=== PATIENT | female | born 1970 | race Caucasian/White ===

== ENCOUNTER 2018-08-06 07:50 | Inpatient (IN) ==
[~2018-08-06 07:50] MED LIST: Bupivacaine/Epinephrine 0.5% Inj 50 ML Vial ONE; Gelatin Size 100 Topical Foam ONE; Thrombin Topical Soln 5,000 UNIT Vial TOPICAL ONE
[2018-08-06] MEDS ORDERED: Chlorhexidine Gluconate 2% 1 Pack (2 Cloths) TOPICAL ONE (08:30)
[2018-08-06] MEDS ORDERED: Sodium Chlor 0.9% Inj 500 ML IV.CONT ONE (08:30)
[2018-08-06] MEDS ORDERED: Metoprolol Tartrate 25 MG Tablet PO ONE (08:30)
[2018-08-06] MEDS: Sod Chloride 0.9% Inj 1,000 ML IV.CONT SCH (08:52)
[2018-08-06] MEDS ORDERED: Vancomycin Inj 1,000 MG in Sodium Chlor 0.9% Inj 250 ML IV.SIG SCH (09:00)
[2018-08-06] MEDS ORDERED: Lidocaine PF 1% Inj 5 ML Syringe INFILTRATN ONE (09:20)
[2018-08-06] MEDS ORDERED: Neostigmine Inj 5 MG/5 ML Syringe IV.PUSH ONE (09:20)
[2018-08-06] MEDS ORDERED: Glycopyrrolate Inj 1 MG/5 ML Syringe IV.PUSH ONE (09:20)
--- NOTE | 2018-08-06 10:18 | P.OP ---
- Preoperative Diagnosis (1) Chronic low back pain with right-sided sciatica (2) Lumbar disc herniation with radiculopathy (3) Lumbar degenerative disc disease (4) Lumbar facet arthropathy Date of procedure: 08/06/18 Procedure: L5-S1 transforaminal decompression with interbody fusion; L5-S1 pedicle screw fixation; L5-S1 interbody cage placement; microsurgical technique Anesthesia: GETA Surgeon: Jagdeep Silvestre MD Milk Vendor: Chaya Nicole Estimated blood loss (mL): 100 Operation and Findings: This was a difficult case due to the patient body habitus and morbid obesity. The [id number] details of the procedure, indications, alternatives, risks and potential complications were fully discussed with the patient. The patient fully understood. All the questions were answered. No guarantees were given. The patient voiced requesting the procedure and provided informed consents. The patient was offered the alternative of delaying the procedure and continuing with nonsurgical management. Prior to the procedure, the surgical incision was marked in the preoperative surgical holding room, and the procedure, risks, and potential complications revisited with the patient. Placement of electrodes for intraoperative neurophysiological monitoring was completed. The patient was taken to the operative room, and following induction of general anesthesia, endotracheal intubation was performed. A Pascual catheter, bilateral DEJA hose and sequential compression devices were placed and kept throughout the procedure. The patient was positioned prone, over a Jorje table over a Marcial frame. All pressure in the preoperative surgical holding room points were carefully padded. The eyes were tapped shut after ointment was applied by the anesthesiologist to prevent corneal abrasion. A Juan R hugger was placed over the exposed lower body to maintain control of the core body temperature. The lumbar region was prepped and draped in the usual sterile fashion. Once the patient was positioned, a localizing cross-table lateral x-ray was performed with a C-arm. A right paramedian incision was outlined on the skin approximately 3cm from the midline. The skin incision made with a #10 blade. Small bleeders were controlled with the cautery. The dissection was then carried out into deeper planes and through the thoracolumbar fascia with a Bovie. The intermuscular septum was identified and the mucles were blunted dissected along the septum. The facets and transverse process at the right L5- S1 levels were exposed and the proper anatomical landmarks were identified. A microsurgical self-retaining retractor was placed on the incision, and a localizing lateralizing cross-table x-ray was performed. Intraoperative microscope magnification used for further dissection. There was significant facet and ligamentum flavum hypertrophy noted. The right L5-S1 facet was resected with a drill bit along with the lamina and there was severe foraminal and lateral recess stenosis from hypertrophied ligamentum flavum and facet which was decompressed. There was disc height collapse from the degeneration along with disc protrusion also leading to the foraminal stenosis. Epidural hemostasis was achieved with bipolar cautery and Gelfoam with thrombin. Subsequently entered into the disc space at the L5-S1 level with a #15 blade and yeni were used for discectomy. I then placed PEEK cage packed with local autograft bone and more local autograft bone was packed adjacent to the cage in interspace for added interbody fusion. With placement of the cage, I was able to distract the interspace and opened up the foramen further bilaterally. Subsequently in order to facilitate the fusion and provide stabilization, pedicle screw fixation was undertaken using [place] spine screws on entry point at the right L5 level at the junction of the transverse process and facet in the right S1 through the sacral ala and pedicle into the body. Subsequently using AP and lateral fluoroscopy tap and screw placement. The screws were then connected with a umu and locked in place with caps. The construct appeared very secure at this point. The area was then copiously irrigated with Vancomycin solution and powder. The retractors were removed and the bipolar cautery used for hemostasis. The muscle fascia was then approximated using 2-0 Vicryl interrupted stitches and then 3-0 Vicryl subcuticular stitches also placed in interrupted fashion. The final skin closure was completed with Mastisol and Steri-Strips. A sterile dressing was then applied. The patient then turned in supine position, extubated and taken to recovery room. There were no intraoperative complications. All sponge and needle counts were correct at the end of procedure. Estimated blood loss about 100 ml.
[2018-08-06] MEDS ORDERED: fentaNYL Citrate Inj 100 MCG/2 ML Ampul ONE (13:23)
[2018-08-06] MEDS ORDERED: Aluminum/Magnesium/Simethacone Susp 30 ML UDC PO PRN (13:27)
[2018-08-06] MEDS ORDERED: Calcium Gluconate Inj 1 GM in Sodium Chlor 0.9% Inj 100 ML IV.SIG PRN (13:27)
[2018-08-06] MEDS ORDERED: Bisacodyl 10 MG Supp RECTAL PRN (13:27)
[2018-08-06] MEDS ORDERED: Menthol 5.8 MG Lozenge BUCCAL PRN (13:27)
[2018-08-06] MEDS ORDERED: Magnesium Sulfate Inj 2 GM in Sodium Chlor 0.9% Inj 96 ML IV.SIG PRN (13:27)
[2018-08-06] MEDS ORDERED: Acetaminophen 325 MG Tablet PO PRN (13:27)
[2018-08-06] MEDS ORDERED: Potassium Chlor 20 mEq Premix 20 MEQ/100 ML PIGGYBACK IV.SIG PRN (13:27)
[2018-08-06] MEDS ORDERED: HYDROmorphone PF Inj 2 MG/ML Vial IV.PUSH PRN (13:33)
[2018-08-06] MEDS ORDERED: *Meperidine Inj 25 MG/ML Vial PERIprocedural Use ONLY ONE (13:44)
--- NOTE | 2018-08-06 15:35 | XR ---
EXAM DATE: 08/06/2018 12:00 AM EDT AGE/SEX: 47 years / Female INDICATIONS: Post-op L5-S1 posterior lumbar fusion. CLINICAL DATA: This is the patient's initial encounter. Patient reports that signs and symptoms have been present for 1 day and indicates a pain score of Nonresponsive. MEDICAL/SURGICAL HISTORY: Non-responsive. Non-responsive. COMPARISON: No prior exams available for comparison. FINDINGS: Limited 2 projection examination of the lumbar spine reveals unilateral right-sided posterior pedicle screw and longitudinal bar hardware fixation at L5-S1. Disc spacer appears well-positioned. Alignmen t is anatomic. CONCLUSION: Satisfactory operative appearance. Electronically signed by: Will Patel MD 08/06/2018 3:34 PM EDT
[2018-08-06 15:49] LABS: Baso % (Auto) 0.2 % (0.0-2.0); Hematocrit 38.7 % (35.0-46.0); Lymph # (Auto) 0.3 th/mm3 (1.0-4.8); Lymph % (Auto) 3.6 % (9.0-44.0); Mean Corpuscular HGB Conc 33.6 % (32.0-36.0); Mean Corpuscular Hemoglobin 31.6 pg (27.0-34.0); Mean Corpuscular Volume 94.1 fL (80.0-100.0); Mean Platelet Volume 9.8 fL (7.0-11.0); Mono # (Auto) 0.1 th/mm3 (0.0-0.9); Mono % (Auto) 0.8 % (0.0-8.0); Neut # (Auto) 8.5 th/mm3 (1.8-7.7); Neut % (Auto) 95.4 % (16.0-70.0); Platelet Count 140 th/mm3 (150-450); Red Blood Count 4.11 mil/mm3 (4.00-5.30); Red Cell Distribution Width 13.5 % (11.6-17.2); White Blood Count 8.9 th/mm3 (4.0-11.0)
[2018-08-06 16:09] LABS: Carbon Dioxide 21.4 meq/L (21.0-32.0); Potassium 3.7 meq/L (3.5-5.1)
[2018-08-06 16:10] LABS: Calcium 8.3 mg/dL (8.5-10.1); Magnesium 1.9 mg/dL (1.5-2.5)
[2018-08-06] MEDS: Gabapentin 300 MG Capsule PO SCH (18:29)
[2018-08-06] MEDS: Senna/Docusate Sodium 8.6/50 MG Tablet PO SCH (20:59)
[2018-08-06] MEDS ORDERED: Zolpidem Tartrate 5 MG Tablet PO PRN (21:00)
[2018-08-07] MEDS: Gabapentin 300 MG Capsule PO SCH ×3 (09:15→18:11)
[2018-08-07] MEDS: Senna/Docusate Sodium 8.6/50 MG Tablet PO SCH ×2 (09:16→20:21)
--- NOTE | 2018-08-07 10:28 | P.PNNS ---
Subjective Interval history: Patient with muscle spasms. tolerating diet. +voiding Physical Exam Vital signs: Vital Signs 08/06/18 13:09 08/06/18 13:30 08/06/18 13:45 Temperature 98 F Pulse Rate 75 62 70 Respiratory Rate 18 18 18 Blood Pressure 115/55 L 111/61 107/59 L Pulse Oximetry 100 95 95 08/06/18 14:00 08/06/18 14:10 08/06/18 16:00 Temperature 98 F 98 F 97.9 F Pulse Rate 73 73 96 H Respiratory Rate 18 18 18 Blood Pressure 101/57 L 101/57 L 160/84 H Pulse Oximetry 95 95 97 08/06/18 20:00 08/06/18 20:53 08/07/18 00:00 Temperature 98.2 F 98.7 F Pulse Rate 64 84 Respiratory Rate 18 18 18 Blood Pressure 124/61 115/55 L Pulse Oximetry 99 94 L 08/07/18 04:00 08/07/18 08:00 08/07/18 09:15 Temperature 98.3 F 97.9 F Pulse Rate 85 85 Respiratory Rate 17 16 18 Blood Pressure 104/50 L 96/65 L Pulse Oximetry 96 97 Intake & Output 08/06/18 08/07/18 08/07/18 18:59 06:59 18:59 Intake Total 1610 / 1610 1211 / 1211 Output Total 600 / 600 2550 / 2550 Balance 1010 / 1010 -1339 / -1339 Weight 92.6 kg Intake: IV 1250 / 1250 1211 / 1211 LR 1000 mL Inj 1,000 ML @ 30 1000 / 1000 mls/hr IV.CONT .Q24H ONE Rx#: [id number] NS + KCl 20 mEq Inj 1,000 ML @ 1111 / 1111 100 mls/hr IV.CONT .Q10H [facility] Rx #:[id number] Vancomycin Inj 1,000 MG In NS 250 / 250 Inj 250 ML @ 250 mls/hr IV.SIG OUTSOLE FLEXER [facility] Rx#:[id number] Ancef Inj 1,000 MG In NS Inj 100 / 100 100 ML @ 200 mls/hr IV.SIG Q8H [facility] Rx#:[id number] Oral 360 / 360 Output: Urine 350 / 350 Estimated Blood Loss 100 / 100 Urine Amount (Catheter) 150 / 150 2550 / 2550 Indwelling Urethral Catheter 150 / 150 2550 / 2550 Other: Date of Last Bowel Movement 08/05/18 08/05/18 # Bowel Movements 0 Weight On Admission 92.6 kg Narrative: E4 Ao3 FCCx4 5/5 strength in the UEs and LEs Incision: CDI, without drain - Urinary Catheter Management Indwelling Urethral Catheter Cath placed during this visit: yes, but has since been removed by the nurse Reason for continuing: Decision to DC catheter Insertion date: 08/06/18 Insertion time: 09:30 Removal date: 08/07/18 Removal time: 06:05 Assessment and Plan - Plan 47 yo POD 1 L5-S1 TLIF -pain management: goal transition to po pain meds today -OOB with brace -cleared for home by PT -possible DC home tomorrow
[2018-08-07] MEDS: Sod Chloride 0.9% Inj 1,000 ML IV.CONT SCH (12:52)
--- NOTE | 2018-08-07 14:16 | P.DCO ---
- Physical Therapy Order: Evaluate and treat - Occupational Therapy Order: Evaluate and treat - Home Health Nursing Order: Wound care and dressing changes - Case Management Consult Yes - Certification I have seen patient Kayla Shields on 08/07/18. My clinical findings support the need for the requested home health care services because she is s/p lumbar fusion with limited mobility post op Deconditioned with increased weakness, Limited ability to care for self I certify that my clinical findings support that this patient is homebound because: Unsteady gait/balance, Unsafe to leave home unassisted
--- NOTE | 2018-08-08 08:29 | P.PNNS ---
Subjective Interval history: reports pain controlled. exam stable. tolerating diet. +voiding Physical Exam Vital signs: Vital Signs 08/07/18 09:15 08/07/18 12:00 08/07/18 16:00 Temperature 97.9 F 98.4 F Pulse Rate 85 73 Respiratory Rate 18 16 16 Blood Pressure 104/53 L 107/57 L Pulse Oximetry 99 98 08/07/18 20:00 08/08/18 00:00 08/08/18 04:00 Temperature 99 F 97.8 F 97.9 F Pulse Rate 86 99 H 88 Respiratory Rate 17 18 17 Blood Pressure 120/56 L 112/58 L 102/57 L Pulse Oximetry 100 94 L 94 L Intake & Output 08/07/18 08/08/18 08/08/18 18:59 06:59 18:59 Intake Total 480 / 480 1940 / 1940 100 / 100 Balance 480 / 480 1940 / 1940 100 / 100 Weight 95.8 kg Intake: Oral 480 / 480 1940 / 1940 100 / 100 Other: # Voids 3 2 Date of Last Bowel Movement 08/05/18 08/05/18 Narrative: E4 Ao3 FCCx4 5/5 strength in the UEs and LEs Incision: CDI, without drain - Urinary Catheter Management Indwelling Urethral Catheter Cath placed during this visit: yes, but has since been removed by the nurse Reason for continuing: Decision to DC catheter Insertion date: 08/06/18 Insertion time: 09:30 Removal date: 08/07/18 Removal time: 06:05 Assessment and Plan - Plan 47 yo POD 2 L5-S1 TLIF -OOB with brace -cleared for home by PT -dc today
[2018-08-08] MEDS: Senna/Docusate Sodium 8.6/50 MG Tablet PO SCH (10:26)
[2018-08-08] MEDS: Gabapentin 300 MG Capsule PO SCH ×2 (10:27→14:23)
[2018-08-08] MEDS: Sod Chloride 0.9% Inj 1,000 ML IV.CONT SCH (10:28)
== END 2018-08-08 17:42 | disposition home health service (06) ==
LOC: HSDI 07:50 → N06 14:21
PROVIDERS: ADMIT Neurological Surgery; ATTEND Neurological Surgery
PROC: LAMPLIF (2018-08-06 09:20)